=== PATIENT | male | born 1945 | race Caucasian/White ===

== ENCOUNTER → 2016-10-20 | Outpatient (CLI) | payer OTHER, MEDICARE ==
[~2016-10-20] MED LIST: CALC-52 PO
--- NOTE | 2016-10-20 14:46 | DI ---
INDICATION: ITS.REASON: DIAGNOSTIC X-RAY PROCEDURE: CHEST 2-VIEWS UPRIGHT (PA \T\ LAT) Encounter: Initial COMPARISON: None FINDINGS: The lungs are clear without evidence of focal abnormal airspace opacity. There is no pleural effusion or pneumothorax. The heart size, mediastinal contours and pulmonary vascularity are within normal limits. There is no significant skeletal abnormality. IMPRESSION: No acute cardiopulmonary disease. .
== END ==
LOC: IMA 14:18
DX: Z02.9 Encounter for administrative examinations, unspecified (principal)

== ENCOUNTER → 2016-10-21 | Outpatient (CLI) | payer OTHER, MEDICARE ==
--- NOTE | 2016-10-21 20:48 | ECHOF ---
ECHOCARDIOGRAM DATE OF PROCEDURE October 21, 2016 This is a two-dimensional echo with spectral Doppler, color-flow and M-mode.. It was obtained in a patient with coronary artery disease. Left atrial dimension is normal. Left ventricular end-diastolic dimension is normal. Left ventricular wall thickness is normal. LV systolic function is normal with ejection fraction of 65%. Right atrium is normal. Right ventricle is normal. Aortic root dimension is normal. Mitral valve is morphologically normal with trace of mitral regurgitation. Aortic valve is a trileaflet structure with no stenosis or insufficiency. Tricuspid valve shows trace of tricuspid regurgitation with normal estimated pulmonary artery systolic pressure of 14. Pulmonary valve shows trace of pulmonary insufficiency. There is no pericardial effusion. IMPRESSION 1. Normal LV systolic function with ejection fraction of about 65%. 2. Trace of pulmonary insufficiency. 3. Trace of mitral regurgitation. 4. Trace of tricuspid regurgitation with estimated pulmonary artery systolic pressure of 14. MTDD
== END ==
LOC: IMA 10:25
DX: Z02.9 Encounter for administrative examinations, unspecified (principal)
CPT/HCPCS: 93306